=== PATIENT | female | born 1930 | race Caucasian/White ===

== ENCOUNTER 2018-08-22 07:42 | Day surgery (SDC) ==
[~2018-08-22 07:42] MED LIST: BRIMONIDINE TARTRATE 0.2% OPTH SOL OP PRN; BSS WITH EPINEPHRINE OP ONE; DEX-MOXI-KETOR OPTH INJ 1/0.5/0.4 MG/ML IO ONE; LIDOCAINE 1% 20 ML MDV ID STA; LIDOCAINE 1%/PHENYLEPHRINE 1.5% BSS (SURGERY) INTRAOCULA ONE; ZOFRAN 4 MG/2 ML IVP ONE
[2018-08-22] MEDS: TETRACAINE 0.5% UNIT-DOSE OP PRN ×2 (08:20→09:00)
[2018-08-22] MEDS: BETADINE OPTH PREP OP PRN ×2 (08:20→09:00)
[2018-08-22] MEDS: CYCLOGYL 2% OPTH OP PRN ×3 (08:20→08:30)
[2018-08-22] MEDS ORDERED: ZOFRAN 4 MG/2 ML ONE (09:05)
[2018-08-22] MEDS ORDERED: DIPRIVAN 20 ML VIAL IVP ONE (09:05)
[2018-08-22 11:26] VITALS: TEMP 98.1
[2018-08-25 17:00] VITALS: BP 143/69
== END 2018-08-22 10:10 | disposition home or self-care (01) ==
LOC: SURG 07:42
PROVIDERS: ATTEND Ophthalmology
DX: H25.11 Age-related nuclear cataract, right eye (principal)